=== PATIENT | male | born 1980 | race Caucasian/White ===

== ENCOUNTER → 2017-07-26 | Outpatient (CLI) | payer MEDICARE ==
[~2017-07-26] MED LIST: ATIVAN GENERIC0.5 MG PO; AUGMENTIN1 TA2 PO; CYMBALTA60 MG PO; GABAPENTIN600 MG PO; LEVOTHYROXIN0.025 M1 PO; LISINOPRIL2.5 M1 PO; NAPROXEN SODIU500 MG PO; NIX CREAM R60 ML/BOT EX; NORCO 325 MG-51 TAB PO; OMEPRAZOLE20 MG PO; PHENERGAN25 M3 PO; PROAIR HFA0.09 MG/AC IH; TESSALON PERLE100 MG PO; TOPIRAMATE100 MG PO
--- NOTE | 2017-07-26 17:11 | RADIOLOGY REPORT PS360 ---
HIP LT 2-3V W/PELVIS IF PERFOR COMPARISON: Left hip 06/12/2017 HISTORY: Follow-up fracture TECHNIQUE: AP pelvis, cone-down AP and frog-leg views left hip FINDINGS: The possible nondisplaced fracture of the greater trochanter shows interval healing with blurring of the transverse radiolucency. Femoral head and neck appear intact and the lesser trochanters intact. There are no soft tissue calcifications. IMPRESSION: Healing or healed transverse essentially nondisplaced fracture greater trochanter left hip
== END ==
LOC: RAD 09:23
DX: S72.002A Fracture of unspecified part of neck of left femur, initial encounter for closed fracture (principal)